=== PATIENT | male | born 1995 | race Caucasian/White ===

== ENCOUNTER 2022-04-17 15:12 | Emergency (ER) | payer SELFPAY ==
[2022-04-17] MEDS ORDERED: LIDOCAINE HCL 1% 20 ML VIAL ONE (15:25)
[2022-04-17] MEDS ORDERED: TDAP DIPH,PERTUSS,TET VAC/PF 0.5 ML DISP.SYRIN IM ONE ×2 (15:26→15:30)
[2022-04-17] MEDS ORDERED: LIDOCAINE HCL 1% 20 ML VIAL IJ ONE (15:30)
[2022-04-17] MEDS ORDERED: NEOMY/BACITRA/POLYMYXIN B OINT UD PACKET TP ONE ×2 (15:30→15:34)
--- NOTE | 2022-04-17 16:16 | NUR ---
Patient discharged to home in stable condition. Written and verbal after care instructions given. Patient verbalizes understanding of instructions. Stressed follow up or return to ER for worsening s/s.
[2022-04-17 16:17] VITALS: BP 129/89
== END 2022-04-17 16:18 | disposition home or self-care (01) ==
LOC: ER 15:12
DX: S61.411A Laceration without foreign body of right hand, initial encounter (principal); W25.XXXA Contact with sharp glass, initial encounter; Y93.89 Activity, other specified; Y92.89 Other specified places as the place of occurrence of the external cause
CPT/HCPCS: 99283; 90715; 90471; 12001; J3490; J7040